=== PATIENT | male | born 1970 | race Caucasian/White ===

== ENCOUNTER 2018-05-24 20:28 | Inpatient (IN) | payer OTHER ==
[2018-05-24 21:28] LABS: BASO # 0.1 K/uL (0.0-0.2); BASO % 0.4 % (0.0-2.0); EOS # 0.1 K/uL (0.0-0.7); EOS % 0.7 % (0.0-4.0); HEMOGLOBIN 16.6 g/dL (12.0-18.0); LYMPH % 57.9 % (20.0-40.0); MEAN CELL VOLUME 87.7 fL (80.0-94.0); MEAN CORPUSCULAR HEMOGLOBIN 29.9 pg (27.0-31.0); MEAN CORPUSCULAR HGB CONC 34.1 g/dL (33.0-37.0); MEAN PLATELET VOLUME 8.8 fL (7.2-11.7); MONO # 0.7 K/uL (0.0-0.8); MONO % 5.3 % (0.0-10.0); NEUT # 4.9 K/uL (1.8-7.0); NEUT % 35.7 % (50.0-75.0); NRBC % 0.1 % (0.0-2.0); RBC 5.55 Mil/uL (4.40-5.90); RED CELL DISTRIBUTION WIDTH 13.1 % (11.5-14.5); WHITE BLOOD COUNT 13.7 K/uL (4.8-10.8)
--- NOTE | 2018-05-24 21:30 | C.PDOC ---
History Of Present Illness 48 year old male presents to the ED for evaluation of depression and suicidal ideation. Patient reports he is thinking of drinking vodka or bleach. Patient denies HI, hallucinations, CP, SOB, injury, fall, trauma. Time Seen by Provider: 05/24/18 21:30 Chief Complaint (Nursing): Psychiatric Evaluation History Per: Patient History/Exam Limitations: no limitations Onset/Duration Of Symptoms: Days Current Symptoms Are (Timing): Still Present Suicide/Self Injury Attempted (Context): Ingestion Modifying Factor(s): Alcohol Associated Symptoms: Depression, Suicidal Thoughts, Suicidal Plan Additional History Per: Patient Past Medical History Reviewed: Historical Data, Nursing Documentation, Vital Signs Vital Signs: Last Vital Signs Temp 99 F 05/24/18 21:00 Pulse 66 05/24/18 21:00 Resp 18 05/24/18 21:00 BP 139/71 05/24/18 21:00 Pulse Ox 97 05/24/18 21:00 - Medical History PMH: Depression Surgical History: No Surg Hx Family History: States: Unknown Family Hx - Social History Hx Alcohol Use: No Hx Substance Use: Yes - Immunization History Hx Tetanus Toxoid Vaccination: No Hx Influenza Vaccination: No Hx Pneumococcal Vaccination: No Review Of Systems Constitutional: Negative for: Fever, Chills Cardiovascular: Negative for: Chest Pain Respiratory: Negative for: Shortness of Breath Gastrointestinal: Negative for: Vomiting, Abdominal Pain Skin: Negative for: Rash Psych: Positive for: Depression, Suicidal ideation Physical Exam - Physical Exam Appears: Non-toxic, No Acute Distress, Other (depressed affect ) Skin: Warm, Dry Head: Normacephalic Eye(s): bilateral: Normal Inspection Neck: Supple Chest: Symmetrical Cardiovascular: Rhythm Regular Respiratory: No Rales, No Rhonchi, No Wheezing Gastrointestinal/Abdominal: Soft, No Tenderness, No Guarding, No Rebound Extremity: Bilateral: Atraumatic, Normal Color And Temperature, Normal ROM Neurological/Psych: Oriented x3, Normal Speech, Normal Cognition Gait: Steady ED Course And Treatment - Laboratory Results Result Diagrams: 05/24/18 21:24 05/24/18 21:24 O2 Sat by Pulse Oximetry: 97 (ON RA) Pulse Ox Interpretation: Normal Progress Note: Plan: - Labs. - Crisis eval. - 1:1 Obs. - UA Disposition Discussed With : Beto Cabrera Comment: accepted the pt on his service and took over the care at 10:44 PM Counseled Patient/Family Regarding: Studies Performed, Diagnosis, Need For Followup - Disposition Disposition: HOSPITALIZED Disposition Time: 21:30 Condition: FAIR Forms: [facility] (Persian) - Clinical Impression Clinical Impression: Major depression, Opioid use disorder, severe, dependence - Scribe Statement The provider has reviewed the documentation as recorded by the Scribe Zachary Rene All medical record entries made by the Scribe were at my direction and personally dictated by me. I have reviewed the chart and agree that the record accurately reflects my personal performance of the history, physical exam, medical decision making, and the department course for this patient. I have also personally directed, reviewed, and agree with the discharge instructions and disposition. Decision To Admit - Pt Status Changed To: Hospital Disposition Of: Inpatient - Admit Certification Admit to Inpatient:: After my assessment, the patient will require hospitalization for at least two midnights. This is because of the severity of symptoms shown, intensity of services needed, and/or the medical risk in this patient being treated as an outpatient. - InPatient: Physician Admission Certification: I certify that this patient requires 2 or more midnights of care for the following reason:: After my assessment, the patient will require hospitalization for at least two midnights. This is because of the severity of symptoms shown, intensity of services needed, and/or the medical risk in this patient being treated as an outpatient. - . Bed Request Type: Psychiatry Admitting Physician: Beto Cabrera Patient Diagnosis: Major depression, Opioid use disorder, severe, dependence
[2018-05-24 21:32] LABS: URINE BILIRUBIN NEGATIVE (NEGATIVE); URINE BLOOD NEGATIVE (NEGATIVE); URINE CLARITY Clear (Clear); URINE COLOR Yellow (YELLOW); URINE GLUCOSE (UA) NORMAL (Normal); URINE LEUKOCYTE ESTERASE NEG Leu/uL (Negative); URINE PROTEIN NEGATIVE (NEGATIVE); URINE UROBILINOGEN NORMAL mg/dL (0.2-1.0)
[2018-05-24 21:50] LABS: BARBITURATES, UR NEGATIVE (NEGATIVE); BENZODIAZEPINES, UR NEGATIVE (NEGATIVE); PHENCYCLIDINE, UR NEGATIVE (NEGATIVE)
[2018-05-24 21:52] LABS: ALB/GLOB RATIO 1.1 (1.0-2.1); ALBUMIN 4.1 g/dL (3.5-5.0); ALT/SGPT 86 U/L (21-72); AST/SGOT 64 U/L (17-59); BLOOD UREA NITROGEN 20 mg/dL (9-20); CALCIUM 8.9 mg/dl (8.6-10.4); GFR NON-AFRICAN AMERICAN > 60
[2018-05-24 22:19] LABS: OPIATES, UR POSITIVE (NEGATIVE)
--- NOTE | 2018-05-25 06:15 | PCM.BM ---
<Tomas Caraballo - Last Filed: 05/25/18 06:14> Treatment Plan Problems - Problems identified on initial assessmt Suicidal Ideation Date Initiated: 05/24/18 Time Initiated: 23:05 Assessment reference: NA Status: Active Treatment assets and liabiliti Patient Liabilities: substance abuse (Opiates), medical problems (Hep C ) - Milieu Protocol Maintain good personal hygiene: daily Encourage regular showers, daily Remind patient to perform daily oral care, every shift Assist patient to perform ADL's Conduct patient checks and document Observation sheet: Q15 minutes Maintain personal safety: every shift Educate patient to report safety concerns to staff, every shift Monitor environment for contraband/sharps Medication safety: Monitor for expected outcome, potential side effects: every shift, Assess barriers to learning: every shift, Assess readiness for medication education: every shift <Vangie Lopez - Last Filed: 05/26/18 11:15> - Diagnosis (1) Major depression Status: Acute Interventions: 05/26/18 11:15 * Assess/adjust medications daily and /or as needed * See patient on an individual basis 7x/week to assess symptoms of depression * Monitor for side effects & effectiveness of medications * (2) Opioid use disorder, severe, dependence Status: Acute Interventions: 05/26/18 11:16 * Assess 7x/week regarding severity of withdrawal * Educate regarding risks, benefits, side effects and alternatives of medications * Use Motivational Interviewing for abstinence * Use CBT for relapse prevention * Medication management for withdrawal symptoms * Encourage medication assisted treatment * <Katja John - Last Filed: 05/26/18 16:33> Family Contact Family involvement: Patient does not wish Family/SO involvement Family contact: Patient declines to allow family contact at present - Goals for Treatment Patient goals for treatment: "I am going to [facility] rehab for rehab." Discharge/Continuing Care - Education Needs Education Needs: Patient Medication, Patient Diagnosis/Disease Process, Patient Coping Skills - Discharge Discharge Criteria: Free of Suicidal thoughts, Normal sleep pattern, Ability to care for self, No longer exhibiting s/s of withdrawal, Reduction of target symptoms Discharge to:: Substance Abuse Rehab - Treatment Team Participation Discussed with Family/SO: No Was Patient/Family/SO present at Treatment Team Meeting: Yes
[2018-05-25] MEDS ORDERED: Aluminum Hydroxide/Magnesium Hydroxide Susp (30 mL) PO PRN (10:02)
--- NOTE | 2018-05-25 10:02 | PCM.PSYCH ---
Initial Psychiatric Evaluation - Initial Psychiatric Evaluation Type of Admission: Voluntary Legal Status: Capacity Chief Complaint (in patient's own words): "I feel depressed" History of Present Illness and Precipitating Events: Patient is a 48-year-old male. He lives with an another family member. He recently lost his job and currently unemployed. Patient is here for depression and suicidal ideation. Patient states that he started feeling depressed last Thursday04/22/19 after losing his job. He reports that he relapsed on heroin 4 months ago. He uses about 50 bags of heroine via IV in the last 35 years. Before relapsing, he was clean for 4 years. His last use of heroin was 25 bags via IV on Thursday04/23/19. Patient denies any other drug or alcohol use. Patient denies having suicidal or homicidal ideation. He does not have any visual or auditory hallucinations. He reports feeling depressed and weak today. Patient currently denies any nausea, vomiting, diarrhea, or abdominal pain. However, he admits that he has slight tremor in his hands, hot/cold flushes, and he feels agitated. He states that he tries to calm himself down when he feels agitated. Patient tried detox 2x in the past. The most recent detox was in [facility] 3 weeks ago. He denies ever being in rehab before. He has never been hospitalized for psychiatric reasons before. Pscyh hx; denies Medical hx; denies Family hx: denies. Current Medications: Active Medications Generic Name Dose Route Start Last Admin Trade Name Freq PRN Reason Stop Dose Admin Influenza Virus Vaccine 60 mcg 05/27/18 10:00 Fluzone Quad [id number] IM 05/27/18 10:01 .ONCE ONE Pneumococcal Polyvalent Vaccine 0.5 ml 05/28/18 10:00 Pneumovax 23 Vaccine IM 05/28/18 10:01 .ONCE ONE Trazodone HCl 50 mg 05/24/18 23:29 05/24/18 23:46 Desyrel PO 50 mg HS PRN Administration Sleep Past Psychiatric History - Past Psychiatric History Previous Treatment History: None Pertinent Medical Hx (Current Medical&Sleep Prob, Allergies): Allergies Allergy/AdvReac Type Severity Reaction Status Date / Time No Known Allergies Allergy Unverified 05/24/18 21:07 No Known Home Med 05/24/18 Review of Systems - Review of Systems All systems: reviewed and no additional remarkable complaints except - Psychiatric Psychiatric: Anxiety, Depression, Irritability, Suicidal Ideation Mental Status Examination - Personal Presentation Personal Presentation: Looks stated age - Affect Affect: Constricted, Depressed - Motor Activity Motor Activity: Calm - Reliability in Providing Information Reliability in Providing Information: Good, Fair - Speech Speech: Organized - Mood Mood: Depressed, Anxious - Formal Thought Process Formal Thought Process: No Impairment - Obsessions/Compulsions Obsessions: No Compulsions: No - Cognitive Functions Orientation: Person, Place, Situation, Time Sensorium: Alert Attention/Concentration: Attentive Abstract Thinking: [place] Estimate of Intelligence: Below average Judgement: Imparied, as evidence by: Poor judgement, Imparied, as evidence by: Lack of insight into illness - Risk Risk: Suicidal, Withdrawal, Diminished functioning - Limitations Limitations: Living alone DSM 5 DX - DSM 5 DSM 5 Diagnosis: Major Depressive disorder recurrent severe without psychotic features Opioid use disorder severe Opioid withdrawal - Recommended/Plan of Treatment Treatment Recommendations and Plan of Treatment: Major Depressive disorder recurrent severe without psychotic features Opioid use disorder severe Opioid withdrawal -CBT -Psychotherapy -Supportive therapy, group therapy, individual therapy -Atarax 25 mg PO Q6 prn -Methadone taper -Trazodone 50 mg PO QHS prn -Neurontin 300 mg PO BID -prn meds 40 min - Smoking Cessation Smoking Cessation Initiated: No
[2018-05-26] MEDS ORDERED: Pneumococcal 23-Valent Vaccine IM ONE (10:20)
--- NOTE | 2018-05-26 11:17 | PCM.PYCHPN ---
Psychiatric Progress Note - Psychiatric Progress Note Patient seen today, length of contact: 15 min Patient Chief Complaint: "I feel depressed" Problems Identified/Issues Discussed: Patient seen and evaluated, chart reviewed and discussed with the nurse. Patient reports some improvement in the depressed mood and some improvement in the feelings of hopelessness and helplessness. As per the staff patient remained isolated and withdrawn. Patient also reports withdrawal symptoms including cramps, nausea, anxiety, and headaches. He is taking the medications and denies any side effects. Symptoms are improving and he needs more time for stabilization Supportive therapy and psychoeducation were given. Medication Change: Yes Medical Record Reviewed: Yes Mental Status Examination - Cognitive Function Orientation: Person, Place, Situation, Time Memory: Intact Attention: WNL Concentration: Poor Association: WNL Fund of Knowledge: Poor - Mood Mood: Depressed, Anxious - Affect Affect: Constricted, Depressed - Speech Speech: Soft - Formal Thought Process Formal Thought Process: No Impairment - Suicidal Ideation Suicidal Ideation: No - Homicidal Ideation Homicidal Ideation: No Goal/Treatment Plan - Goal/Treatment Plan Need for Continued Stay: Severe depression anxiety, Severe functional impairment Progress Toward Problem(s) and Goals/Treatment Plan: Major Depressive disorder recurrent severe without psychotic features Opioid use disorder severe Opioid withdrawal -CBT -Psychotherapy -Supportive therapy, group therapy, individual therapy -Atarax 25 mg PO Q6 prn -Methadone taper -Trazodone 50 mg PO QHS prn -Neurontin 300 mg PO BID -Wellbutrin 75 mg -prn meds
[2018-05-27] MEDS ORDERED: Influenza Vaccine 60 MCG/0.5 ML SYR (3 yr & up) IM ONE (10:00)
--- NOTE | 2018-05-27 14:02 | PCM.PYCHPN ---
Psychiatric Progress Note - Psychiatric Progress Note Patient seen today, length of contact: 15 min Patient Chief Complaint: "Not well" Problems Identified/Issues Discussed: The pt is seen, chart reviewed, case discussed with staff. The pt is compliant with medications and reports no side-effects. Symptoms are improving but needs more time to stabilize. After care discussed, support and psychoeducation given. Medication Change: No Medical Record Reviewed: Yes Mental Status Examination - Cognitive Function Orientation: Person, Place, Situation, Time Memory: Intact Attention: WNL Concentration: Poor Association: WNL Fund of Knowledge: Poor - Mood Mood: Depressed, Anxious - Affect Affect: Constricted, Depressed - Speech Speech: Soft - Formal Thought Process Formal Thought Process: No Impairment - Suicidal Ideation Suicidal Ideation: No - Homicidal Ideation Homicidal Ideation: No Goal/Treatment Plan - Goal/Treatment Plan Need for Continued Stay: Discharge may exacerbated symptoms, Severe functional impairment Progress Toward Problem(s) and Goals/Treatment Plan: Continue medications Support and psychoeducation daily Attend groups and activities daily After care planning by TREVOR
[2018-05-28] MEDS ORDERED: Pneumococcal 23-Valent Vaccine IM ONE (10:00)
--- NOTE | 2018-05-29 17:01 | PCM.PYCHPN ---
Psychiatric Progress Note - Psychiatric Progress Note Patient seen today, length of contact: 15 min Patient Chief Complaint: I'm feeling much better. My sleep is still less but I don't want any more medications. Problems Identified/Issues Discussed: Patient seen, chart reviewed, case discussed with the staff. Issues related to illness and treatment were discussed with the patient and staff. Tolerating treatment very well. Reported compliant with treatment with no adverse affects. Patient reported feeling better with treatment. Needs more time for stabilization. Patient reported decreased sleep but does not want to take any more medications for sleep. Patient was encouraged to attend groups. Patient was calm and cooperative. Awake, alert and oriented 3. Aftercare discussed with the patient. At the time of evaluation, patient had no delusions, no auditory or visual hallucinations, no suicidal ideations or homicidal ideations. Medical Problems: None reported Diagnostic Results: Reviewed DSM 5 Symptoms Update: Improving with treatment Medication Change: No Medical Record Reviewed: Yes Mental Status Examination - Cognitive Function Orientation: Person, Place, Situation, Time Memory: Intact Attention: WNL Concentration: WNL Association: WNL Fund of Knowledge: [facility] Decription of patient's judgement and insights: Fair - Mood Mood: Depressed (Less than before) - Affect Affect: Depressed - Speech Speech: Soft - Language Additional comments: None - Formal Thought Process Formal Thought Process: No Impairment Psychotic Thoughts and Behaviors: None - Suicidal Ideation Suicidal Ideation: No - Homicidal Ideation Homicidal Ideation: No Goal/Treatment Plan - Goal/Treatment Plan Need for Continued Stay: Remain at risks for inpatient hospitalization, Discharge may exacerbated symptoms, Severe functional impairment Progress Toward Problem(s) and Goals/Treatment Plan: Patient/staff education. Supportive therapy. CBT for relapse prevention. [place] for abstinence. Continue treatment as before. Patient wants to go to [facility] for follow-up care after discharge from the hospital. Estimated Date of D/C: 05/31/18 - Smoking Cessation Smoking Cessation Initiated: No
[2018-05-30 06:41] VITALS: RESP 18; O2SAT 96
--- NOTE | 2018-05-30 18:28 | PCM.PYCHPN ---
Psychiatric Progress Note - Psychiatric Progress Note Patient seen today, length of contact: 15 min Patient Chief Complaint: I'm feeling much better. Problems Identified/Issues Discussed: Patient seen, chart reviewed, case discussed with the staff. Issues related to illness and treatment were discussed with the patient and staff. Tolerating treatment very well. Reported compliant with treatment with no adverse affects. Patient reported feeling better with treatment. Needs more time for stabilization. Patient was calm and cooperative. Awake, alert and oriented 3. Aftercare discussed with the patient. At the time of evaluation, patient had no delusions, no auditory or visual hallucinations, no suicidal ideations or homicidal ideations. Medical Problems: None reported Diagnostic Results: Reviewed DSM 5 Symptoms Update: Improving with treatment Medication Change: No Medical Record Reviewed: Yes Mental Status Examination - Cognitive Function Orientation: Person, Place, Situation, Time Memory: Intact Attention: WNL Concentration: WNL Association: WN Fund of Knowledge: [facility] Decription of patient's judgement and insights: Fair - Mood Mood: Depressed (Much less than before) - Affect Affect: Depressed - Speech Speech: Soft - Formal Thought Process Formal Thought Process: No Impairment Psychotic Thoughts and Behaviors: None - Suicidal Ideation Suicidal Ideation: No - Homicidal Ideation Homicidal Ideation: No Goal/Treatment Plan - Goal/Treatment Plan Need for Continued Stay: Remain at risks for inpatient hospitalization, Discharge may exacerbated symptoms, Severe functional impairment Progress Toward Problem(s) and Goals/Treatment Plan: Patient/staff education. Supportive therapy. CBT for relapse prevention. [place] for abstinence. Continue treatment as before. Patient wants to go to [facility] for follow-up care after discharge from the hospital. Estimated Date of D/C: 05/31/18 - Smoking Cessation Smoking Cessation Initiated: No
[2018-05-31 06:49] VITALS: BP 112/73; PULSE 51; TEMP 97.9
--- NOTE | 2018-05-31 10:59 | PCM.PYCHDC ---
Mental Status Examination - Mental Status Examination Orientation: Person, Place, Situation, Time Memory: Intact Mood: Neutral Affect: Constricted Speech: Soft Attention: WNL Concentration: WNL Association: WNL Fund of Knowledge: WNL Formal Thought Process: No Impairment Description of patient's judgement and insight: good, fair Psychotic Thoughts and Behaviors: Denies any AVH Suicidal Ideation: No Current Homicidal Ideation?: No Discharge Summary - Discharge Note Reason for Hospitalization: Patient is a 48-year-old male. He lives with an another family member. He recently lost his job and currently unemployed. Patient is here for depression and suicidal ideation. Patient states that he started feeling depressed last Thursday04/22/19 after losing his job. He reports that he relapsed on heroin 4 months ago. He uses about 50 bags of heroine via IV in the last 35 years. Before relapsing, he was clean for 4 years. His last use of heroin was 25 bags via IV on Thursday04/23/19. Patient denies any other drug or alcohol use. Patient denies having suicidal or homicidal ideation. He does not have any visual or auditory hallucinations. He reports feeling depressed and weak today. Patient currently denies any nausea, vomiting, diarrhea, or abdominal pain. However, he admits that he has slight tremor in his hands, hot/cold flushes, and he feels agitated. He states that he tries to calm himself down when he feels agitated. Patient tried detox 2x in the past. The most recent detox was in [facility] 3 weeks ago. He denies ever being in rehab before. He has never been hospitalized for psychiatric reasons before. Consultations:: List each consultation separately and include: 1. Reason for request. 2. Findings. 3. Follow-up Summary of Hospital Course include:: 1. Description of specific treatment plan utilized for patients during their course of treatmen. 2. Summarize the time- course for resolution of acute symptoms and/or regressed behaviors. 3. Describe issues identified and worked on during hospitalization. 4. Describe medication utilized. 5. Describe medical problems identified and treated. 6. Reassessment of suicide risk Summary of Hospital Course: Patient is a 48-year-old male. He lives with an another family member. He recently lost his job and currently unemployed. Patient is here for depression and suicidal ideation. Patient states that he started feeling depressed last Thursday04/22/19 after losing his job. He reports that he relapsed on heroin 4 months ago. He uses about 50 bags of heroine via IV in the last 35 years. Before relapsing, he was clean for 4 years. His last use of heroin was 25 bags via IV on Thursday04/23/19. Patient denies any other drug or alcohol use. Patient denies having suicidal or homicidal ideation. He does not have any visual or auditory hallucinations. He reports feeling depressed and weak today. Patient currently denies any nausea, vomiting, diarrhea, or abdominal pain. However, he admits that he has slight tremor in his hands, hot/cold flushes, and he feels agitated. He states that he tries to calm himself down when he feels agitated. Patient tried detox 2x in the past. The most recent detox was in [facility] 3 weeks ago. He denies ever being in rehab before. He has never been hospitalized for psychiatric reasons before. Pscyh hx; denies Medical hx; denies Family hx: denies. - Diagnosis (1) Major depression Current Visit: Yes Status: Acute (2) Opioid use disorder, severe, dependence Current Visit: Yes Status: Acute - Final Diagnosis (DSM 5) Condition upon Discharge: FAIR Disposition: HOME/ ROUTINE Follow-up Treatment Plan: Major Depressive disorder recurrent severe without psychotic features Opioid use disorder severe Opioid withdrawal -CBT -Psychotherapy -Supportive therapy, group therapy, individual therapy -Atarax 25 mg PO Q6 prn -Methadone taper -Trazodone 50 mg PO QHS prn -Neurontin 300 mg PO BID -Wellbutrin 75 mg -prn meds Prescriptions/Medication Reconciliation: buPROPion [Wellbutrin] 75 mg PO DAILY #30 tab Gabapentin [Neurontin] 300 mg PO BID #60 cap traZODone [Desyrel] 50 mg PO HS PRN #30 tab PRN Reason: Sleep
== END 2018-05-31 11:20 | disposition home or self-care (01) | DRG 430 ==
LOC: C.ER 20:28 → C.5E 22:43
PROC: GZHZZZZ Group Psychotherapy (ICD-10-PCS; principal; 2018-05-24)
PROC: HZ2ZZZZ Detoxification Services for Substance Abuse Treatment (ICD-10-PCS; 2018-05-24)
PROC: HZ52ZZZ Individual Psychotherapy for Substance Abuse Treatment, Cognitive-Behavioral (ICD-10-PCS; 2018-05-24)
PROC: HZ59ZZZ Individual Psychotherapy for Substance Abuse Treatment, Supportive (ICD-10-PCS; 2018-05-24)
PROC: HZ56ZZZ Individual Psychotherapy for Substance Abuse Treatment, Psychoeducation (ICD-10-PCS; 2018-05-24)
PROC: HZ42ZZZ Group Counseling for Substance Abuse Treatment, Cognitive-Behavioral (ICD-10-PCS; 2018-05-24)
PROC: HZ46ZZZ Group Counseling for Substance Abuse Treatment, Psychoeducation (ICD-10-PCS; 2018-05-24)
PROC: GZ58ZZZ Individual Psychotherapy, Cognitive-Behavioral (ICD-10-PCS; 2018-05-24)
PROC: GZ56ZZZ Individual Psychotherapy, Supportive (ICD-10-PCS; 2018-05-24)
DX: F33.2 Major depressive disorder, recurrent severe without psychotic features (principal); F11.23 Opioid dependence with withdrawal; B19.20 Unspecified viral hepatitis C without hepatic coma; R45.851 Suicidal ideations